=== PATIENT | male | born 1950 | race Caucasian/White ===

== ENCOUNTER 2024-09-09 06:01 | Observation (INO) | payer MEDICARE ==
[2024-09-09] MEDS ORDERED: Vancomycin 1 GM VIAL ONE (06:23)
[2024-09-09] MEDS ORDERED: Thrombin 5000 UNITS/5 ML VIAL ONE (06:23)
[2024-09-09] MEDS ORDERED: PROPOFOL 20 ML ONE (06:57)
[2024-09-09] MEDS ORDERED: Fentanyl 250 MCG/5 ML VIAL ONE (06:57)
[2024-09-09] MEDS ORDERED: Rocuronium Bromide 10 MG/ML (10ML VIAL) ONE (06:57)
[2024-09-09] MEDS ORDERED: Lidocaine 1% PF 5 ML VIAL ONE (06:57)
[2024-09-09 07:04] LABS: #Basophils 0.05 10x3/uL (0.0-0.2); %Basophils 0.6 % (0.0-1.0); %Eosinophils 1.9 % (0.0-10.0); %Lymphocytes 26.1 % (21.0-51.0); %Monocytes 9.7 % (0.0-10.0); %Neutrophils 61.3 % (42.0-75.0); Hematocrit 42.7 % (42.0-52.0); Mean Corpuscular HGB CONC 32.8 g/dL (32.0-36.0); Mean Corpuscular Volume 88.6 fL (78.0-98.0); Mean Platelet Volume 9.6 fL (7.4-10.4); Platelet Count 204 10x3/uL (130-400); RBC Distribution Width 13.9 % (11.5-14.5); Red Blood Cell (RBC) Count 4.82 mill/uL (4.70-6.10)
[2024-09-09 07:13] LABS: Hemoglobin A1c 6.3 % (4.0-6.0)
[2024-09-09 07:19] LABS: PTT 30.3 sec (22.9-36.1); Prothrombin Time 13.5 sec (12.0-14.7)
[2024-09-09] MEDS ORDERED: LevoFLOXacin D5W 500 mg (100 mL) BAG ONE (07:24)
[2024-09-09] MEDS ORDERED: Clindamycin/D5W 900 mg/50 ml Premix Bag ONE (07:24)
[2024-09-09 07:29] LABS: Anion Gap 13 mmol/L (10-20); BUN (Urea Nitrogen) 25 mg/dL (8.4-25.7); Calc. Creatinine Clearance 128 mL/min (70-130); Calcium 9.2 mg/dL (7.8-10.44); Carbon Dioxide 22 mmol/L (23-31); Chloride 109 mmol/L (98-107); Estimated GFR 92; Glucose 134 mg/dL (83-110); Potassium 4.3 mmol/L (3.5-5.1); Sodium 140 mmol/L (136-145)
[2024-09-09] MEDS ORDERED: Dexamethasone 20 MG/5 ML VIAL ONE (08:51)
[2024-09-09] MEDS ORDERED: PHENYLEPHRINE-NS 100 MCG/ML 10 ML SYRINGE ONE (09:25)
[2024-09-09] MEDS ORDERED: Ondansetron PF 4 MG/2 ML Vial ONE (10:10)
[2024-09-09] MEDS ORDERED: HYDROmorphone 2 MG/ML VIAL SLOW IVP PRN (10:43)
[2024-09-09] MEDS ORDERED: Promethazine HCl 25 MG/ML VIAL IM PRN (10:43)
[2024-09-09] MEDS ORDERED: Ondansetron HCl/PF 4 MG/2 ML Vial IVP PRN (10:43)
[2024-09-09] MEDS ORDERED: Morphine Sulfate 2 MG/ML SYRINGE SLOW IVP PRN (10:43)
[2024-09-09] MEDS ORDERED: PACU-Morphine 4MG/ML VIAL SLOW IVP PRN (10:43)
[2024-09-09] MEDS ORDERED: Lidocaine 2% PF 5 ML VIAL ONE (11:17)
[2024-09-09] MEDS ORDERED: Milk Of Magnesia 30 ML UDCUP PO PRN (11:41)
[2024-09-09] MEDS ORDERED: Morphine 2 MG/ML VIAL SLOW IVP PRN (11:41)
[2024-09-09] MEDS ORDERED: Acetaminophen 325 MG TAB PO PRN (11:41)
[2024-09-09] MEDS ORDERED: diphenhydrAMINE 25 MG CAP PO PRN (11:41)
[2024-09-09] MEDS ORDERED: SUGAMMADEX SODIUM 200 MG/2 ML VIAL ONE (11:41)
[2024-09-09] MEDS ORDERED: Acetaminophen/Codeine 30-300mg Tablet PO PRN (11:41)
[2024-09-09] MEDS ORDERED: Ondansetron PF 4 MG/2 ML Vial IVP PRN (11:41)
[2024-09-09] MEDS ORDERED: Mag-Al 1200 mg/1200 mg/30 ML UDCUP PO PRN (11:41)
[2024-09-09] MEDS ORDERED: traMADol HCl 50 MG TAB PO PRN (11:41)
[2024-09-09] MEDS ORDERED: Diazepam 5 MG TAB PO PRN (11:43)
[2024-09-09] MEDS ORDERED: tiZANidine HCl 4 MG TAB PO PRN (11:43)
[2024-09-09] MEDS ORDERED: hydrALAZINE 20 MG/ML VIAL SLOW IVP PRN (11:43)
[2024-09-09] MEDS ORDERED: Albuterol 2.5 MG (3 mL) NEB NEB PRN (11:58)
[2024-09-09] MEDS: Sodium Chloride 0.9% 1,000 ML IV SCH (13:53)
[2024-09-09] MEDS: Clindamycin/D5W 900 MG in Premix 1 BAG IVPB SCH (15:58)
[2024-09-09] MEDS: metFORMIN 500 MG TAB PO SCH (17:33)
[2024-09-09] MEDS: HYDROcodone/Acetaminophen 7.5/325 mg Tablet PO PRN (17:35)
[2024-09-09] MEDS: Montelukast Sodium 10 mg Tablet PO SCH (21:11)
[2024-09-09] MEDS: Atorvastatin Calcium 20 MG TAB PO SCH (21:11)
[2024-09-10 04:52] LABS: #Basophils Less than 0.03 10x3/uL (0.0-0.2); #Eosinophils Less than 0.03 10x3/uL (0.0-0.7); %Basophils 0.1 % (0.0-1.0); %Eosinophils 0.1 % (0.0-10.0); %Monocytes 11.6 % (0.0-10.0); %Neutrophils 77.7 % (42.0-75.0); Hematocrit 38.3 % (42.0-52.0); Hemoglobin 12.5 g/dL (14.0-18.0); Mean Corpuscular HGB CONC 32.6 g/dL (32.0-36.0); Mean Corpuscular Hemoglobin 29.8 pg (27.0-31.0); Mean Corpuscular Volume 91.4 fL (78.0-98.0); Platelet Count 207 10x3/uL (130-400); RBC Distribution Width 13.9 % (11.5-14.5); Red Blood Cell (RBC) Count 4.19 mill/uL (4.70-6.10)
[2024-09-10 05:17] LABS: Anion Gap 13 mmol/L (10-20); BUN (Urea Nitrogen) 19 mg/dL (8.4-25.7); Calc. Creatinine Clearance 125 mL/min (70-130); Calcium 8.9 mg/dL (7.8-10.44); Carbon Dioxide 26 mmol/L (23-31); Chloride 105 mmol/L (98-107); Estimated GFR 91; Glucose 145 mg/dL (83-110); Potassium 5.1 mmol/L (3.5-5.1); Sodium 139 mmol/L (136-145)
[2024-09-10] MEDS: Ipratropium/Albuterol 3 ML NEB NEB SCH (06:58)
[2024-09-10] MEDS: Mometasone 100 MCG/PUFF (1 INHALER) INH SCH (07:03)
[2024-09-10 08:26] VITALS: BP 100/51; TEMP 97.9
[2024-09-10] MEDS: Empagliflozin 10 MG TAB PO SCH (08:42)
[2024-09-10] MEDS: Alogliptin 25 MG TAB PO SCH (08:42)
[2024-09-10] MEDS: Pioglitazone HCl 15 MG TAB PO SCH (08:42)
[2024-09-10] MEDS: Valsartan 80 MG TAB PO SCH (08:42)
== END 2024-09-10 13:46 | disposition home or self-care (01) ==
LOC: SDC 06:01 → SURG B 13:29
PROVIDERS: ADMIT Surgery; ATTEND Surgery
PROC: 01NB0ZZ Release Lumbar Nerve, Open Approach (ICD-10-PCS; principal; 2024-09-09)
PROC: 00NY0ZZ Release Lumbar Spinal Cord, Open Approach (ICD-10-PCS; 2024-09-09)
DX: M48.062 Spinal stenosis, lumbar region with neurogenic claudication (principal); M54.16 Radiculopathy, lumbar region; M71.38 Other bursal cyst, other site; I10 Essential (primary) hypertension; I25.10 Atherosclerotic heart disease of native coronary artery without angina pectoris; E11.9 Type 2 diabetes mellitus without complications; E78.5 Hyperlipidemia, unspecified; J45.909 Unspecified asthma, uncomplicated; Z95.5 Presence of coronary angioplasty implant and graft; Z88.0 Allergy status to penicillin; Z88.8 Allergy status to other drugs, medicaments and biological substances; Z79.51 Long term (current) use of inhaled steroids; Z79.84 Long term (current) use of oral hypoglycemic drugs; Z79.02 Long term (current) use of antithrombotics/antiplatelets; Z79.899 Other long term (current) drug therapy
CPT/HCPCS: 63017; 63047; 63048 ×2; 80048 ×2; 82962; 83036; 85025 ×2; 85610; 85730; 93005; 94640; 97139 ×2; J1100; J1956; J2405; J2704; J3010; J3370; J3490 ×2; 36415; 36416; 93010; J7620